=== PATIENT | male | born 1985 | race Hispanic/Latino ===

== ENCOUNTER 2024-03-27 09:50 | Emergency (ER) | payer SELFPAY ==
[~2024-03-27] VITALS: Ht 172.7 cm; Wt 208.7 kg
[2024-03-27 10:09] VITALS: TEMP 97.8
[2024-03-27 12:46] VITALS: PULSE 75; RESP 16; O2SAT 100
== END 2024-03-27 13:37 | disposition home or self-care (01) ==
LOC: ER 09:57
DX: S82.831A Other fracture of upper and lower end of right fibula, initial encounter for closed fracture (principal); X50.1XXA Overexertion from prolonged static or awkward postures, initial encounter; Y93.01 Activity, walking, marching and hiking; Y92.89 Other specified places as the place of occurrence of the external cause; M54.9 Dorsalgia, unspecified; G89.29 Other chronic pain
CPT/HCPCS: 99284